=== PATIENT | female | born 1980 | race Caucasian/White ===

== ENCOUNTER 2024-09-09 01:52 | Day surgery (SDC) | payer OTHER, SELFPAY ==
[2024-09-08 11:05] VITALS: BMI 26.6
--- OUTSIDE RECORDS SUMMARY | 2024-09-09 01:56 | XMS_ITS | Clinical Summary ---
Author Organization [facility] Address [facility] [place] [address] Care Team Providers Care Fire Hose Curer Name Role Phone Aleyda Powell DO Primary Care Provider [phone] Allergies No known active allergies Medications clindamycin-benzo yl peroxide (BENZACLIN) gel Active hydrocortisone (ANUSOL-HC) 25 mg suppository as needed Active cyclobenzaprine (FLEXERIL) 10 mg tablet Take by mouth 3 (three) times a day as needed Active pregabalin (LYRICA) 75 mg capsule Take 1 capsule (75 mg total) by mouth nightly as needed Active multivitamin tabletIndications :Vitamin Deficiency Prevention Take 1 tablet by mouth Active omega-3 fatty acids-fish oil 300-1,000 mg capsule Take 2 capsules (2 g total) by mouth daily Active cetirizine (ZyrTEC) 10 mg tablet Take 1 tablet (10 mg total) by mouth daily Active tretinoin (RETIN-A) 0.025 % cream APPLY TO AFFECTED AREA EVERY DAY AT BEDTIME Active apixaban (ELIQUIS) 5 mg tabletIndications :Other (complete free text reason below),atrial flutter Take 1 tablet (5 mg total) by mouth 2 (two) times a day 180 tablet 3 024 2024 Active omeprazole OTC (PriLOSEC OTC) 20 mg EC tablet Take 1 tablet (20 mg total) by mouth daily Active fluticasone propionate (Flonase Allergy Relief) 50 mcg/actuation nasal spray Administer 50 mcg into affected nostril(s) Active olopatadine (PATANOL) 0.1 % ophthalmic solution 1 drop Active dexAMETHasone (DECADRON) 1 mg tabletIndications :Low testosterone level in female Take 1 tablet at 11pm on the night before your 8 am cortisol lab draw 1 tablet 1 Active Additional Information Patient not taking.Reported on 07/16/2024 benzonatate (TESSALON) 100 mg capsule TAKE 1 CAPSULE BY MOUTH THREE TIMES A DAY FOR 10 DAYS Active LORazepam (Ativan) 0.5 mg tablet Take 1 tablet (0.5 mg total) by mouth once for 1 dose Take 30 min prior to MRI 1 tablet Active Additional Information Patient not taking.Reported on 08/11/2024 loperamide (IMODIUM) 2 mg capsuleIndication s:diarrhea Take 1 capsule (2 mg total) by mouth 3 (three) times a day as needed for diarrhea 30 capsule Active ondansetron ODT (ZOFRAN-ODT) 4 mg disintegrating tablet Take 1 tablet (4 mg total) by mouth every 8 (eight) hours as needed for nausea or vomiting 20 tablet Active estradioL (VIVELLE-DOT) 0.025 mg/24 hrIndications:Low testosterone level in female Place 1 patch on the skin 2 (two) times a week 8 patch 11 2025 Active progesterone (PROMETRIUM) 100 mg capsuleIndication s:Low testosterone level in female Take 1 capsule (100 mg total) by mouth daily 30 capsule 11 025 2025 Active dilTIAZem (CARDIZEM) 30 mg tablet TAKE 1 TABLET BY MOUTH TWICE A DAY 180 tablet 3 Active atorvastatin (LIPITOR) 40 mg tablet TAKE 1 TABLET BY MOUTH EVERY DAY 90 tablet 3 Active celecoxib (CeleBREX) 200 mg capsule Take 1 capsule (200 mg total) by mouth 2 (two) times a day 60 capsule 1 025 2024 Active atorvastatin (LIPITOR) 40 mg tablet Take 1 tablet (40 mg total) by mouth daily 90 tablet 3 024 2024 Discontinued dilTIAZem (CARDIZEM) 30 mg tabletIndications :Supraventricular Arrhythmias Take 1 tablet (30 mg total) by mouth 2 (two) times a day 180 tablet 3 024 2024 Discontinued Active Problems Problem Noted Date Diagnosed Date Colitis 06/22/2024 Liver lesion 06/04/2024 Assessment & Plan (06/04/2024 8:28 AM CDT): Patient with liver lesion that has been seen on imaging since 2019. Most recent US showed 2.3 cm hyperechoic lesion within right lobe of liver. 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 I will obtain MRI with eovist to confirm. Patient will need anti-anxiety medications, will ask physician to send. No follow-up visit is needed at this time. If liver lesion is not benign, will arrange follow-up accordingly. Stress 05/27/2024 Melanocytic nevus of trunk 05/19/2024 Melasma 05/19/2024 Other nerve root and plexus disorders 05/19/2024 Seborrheic keratosis 05/19/2024 Solar lentigo 05/19/2024 Atrophy of skin 04/27/2024 Shweta infection 04/08/2024 Low testosterone level in female 02/16/2024 Myopia 11/04/2023 Osteoarthritis of right knee 11/04/2023 Transient ischemic attack 10/29/2023 Vision loss of right eye 10/05/2023 Assessment & Plan (11/11/2023 4:40 PM CDT): Was recently admitted for unstable angina mid September 2023 following catheterization procedure developed transient temporal vision loss OD. Ophthalmology was consulted recommended MRI brain and orbits (normal), carotid imaging (normal), and signed off. -today with no vision changes, temporal vision went back to normal following resolution of atrial flutter -exam today overall reassuring -ancillary testing (mac with GCC and Field visual field 24-2) also reassuring -patient can follow-up annually with local eye doctor Assessment & Plan (10/07/2023 2:32 PM CDT): Transient R-sided vision loss for about 1 hour that spontaneously resolved post- LHC. Etiology still unclear but differential includes procedural/sedation related vs TIA related to ?embolic phenomenon given atrial flutter vs headache/aura. - brain MRI with orbits normal - US carotid dopplers normal - 30 day event monitor on discharge - SMART consult - ophtho consulted, appreciate recs: no acute ophtho intervention, plan for 2 week follow up in ophtho clinic - neurology consulted, appreciate recs: unclear, possibly provoked TIA following LHC vs unprovoked TIA from aflutter vs migraine vs other. Paroxysmal atrial flutter 10/03/2023 Assessment & Plan (10/06/2023 12:07 PM CDT): Pt presented to the ED with intermittent left midsternal chest pain that radiates to her left shoulder and jaw. Stress test 09/26 with c/f ischemia involving inferior, apical, septal, and mid anteroseptal segments. Subsequently developed similar chest pain symptoms and found with atrial flutter intra-procedurally, thought to explain her symptoms. - In the ED, EKG with sinus bradycardia w/o ischemic changes. Negative troponin x2. - s/p ASA load and started on heparin gtt - C 10/04/23 without evidence of coronary artery disease, but developed 4:1 atrial flutter with symptomatic chest pain - start diltiazem 30 mg BID, but pt instructed to monitor for symptoms given baseline sinus bradycardia - empirically anticoagulate with apixaban 5 mg BID in the short term; continue outpatient cardiology follow up to determine need for long-term AC based on 30 day MCT - Cardiology consulted, appreciate recs - telemetry Gastroesophageal reflux disease 09/12/2023 Assessment & Plan (10/03/2023 4:09 PM CDT): - cont home PPI Hepatic cyst 09/12/2023 Chest pressure 09/12/2023 Palpitations 08/23/2023 Bilateral lower extremity edema 08/23/2023 Pleuritic chest pain 08/23/2023 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 No EKG concerns - f/u with outpt cards SOB (shortness of breath) 08/23/2023 Nonrheumatic pulmonary valve insufficiency 08/22 Contusion of ankle 06/19/2023 Right ankle sprain 06/19/2023 Low back pain 05/17/2023 Assessment & Plan (10/03/2023 4:12 PM CDT): On flexeril prn, Lyrica prn, celebrex BID - cont home prn lyrica and flexeril - hold celebrex given black box warning increased risk of CV thrombotic events Right lumbar radiculopathy 05/17/2023 Acute appendicitis 08/06/2018 Overview (08/06/2018): Added automatically from request for surgery [id number] Resolved Problems Problem Noted Date Diagnosed Date Resolved Date Morbid obesity 05/27/2024 06/04/2024 Encounters Date Type Department Care Team Description 09/07/2024 1:45 PM CDT Ancillary Procedure Radiology - [address] [place] [address] [address] [place] [address] Chronic left-sided low back pain, unspecified whether sciatica present 09/07/2024 1:20 PM CDT Office Visit [facility] Orthopaedic Surgery [address] [facility] 2[address] [place] [address] Chrissy Lawson PA Chronic left-sided low back pain, unspecified whether sciatica present (Primary Dx); Gluteal tendonitis of left buttock; Sacroiliac joint pain 08/11/2024 4:00 PM CDT Office Visit [facility] Endocrinology Metabolism and Lipid [address] [facility] 13th [place] [address] [place] [address] Melanie Leach MD PhD Low testosterone level in female 07/30/[address] [facility] Cardiology [address] [place] [address] Maame Hankins NP 07/16/2024 3:00 PM CDT Office Visit [facility] Cardiology [address] [place] [address] Maame Hankins NP Chronic anticoagulation (Primary Dx); History of Sztmp-Mqnscrvzj-Ggwkr (WPW) syndrome 07/10/2024 Documentation [facility] Gastroenterology [address] [facility] [address] [place] [address] [place] [address] Teddy Gunderson, JUAREZ 07/10/2024 Results Follow-Up [facility] Gasteroenterology [address] [facility] 12th [place] [address] [place] [address] Dottie Ashley NP MRI Abdomen Liver W WO Contrast 07/09/2024 5:45 PM CDT - 07/09/2024 11:59 PM CDT Hospital Encounter [facility] ([facility] [address] [place] [address] Liver lesion Discharge Disposition: Discharge to home or self care 07/03/2024 Telephone Internal Medicine Giselle Busby MD 06/24/2024 Results Follow-Up [facility] Emergency Department [address] [place] [id number] Benjy Evans RN Stool culture Stool 06/22/2024 9:03 AM CDT - 06/22/2024 5:04 PM CDT Emergency [facility] Emergency Department [address] [place] [address] Russell Gallagher MD Liu, Sonya Yannie, MD Colitis (Primary Dx) Discharge Disposition: Discharge to home or self care 06/12/2024 8:38 AM CDT - 06/12/2024 11:59 PM CDT Hospital Encounter [id number] [address] [facility] [address] [place] [address] Chris Iyer MD Lumbar radiculopathy Discharge Disposition: Discharge to home or self care 06/09/2024 Telephone Radiology - [address] [facility] [address] [address] Hawa Fox, RT from Last 3 Months Immunizations Immunization Administration Dates Next Due Anthrax 01/26/2021, 0,12/25/2018,12/04,11/15/2016,01/14/2015,11/02/2013 ,09/04/2012,07/18/2011,07/07/2010,03/26,08/26/2008,02/06/2008, 8,07/28/2007,07/11/2007 H1N1 Inj Preservative Free 04/15/2009 HPV, Quadrivalent 11/05/2006,07/05/2006,04/24/19 07 Hep A, Adult 06/11/2005,12/12/2004 Hep B Vaccine 04/21/2008,10/14/2007,09/04/2007 IPV 02/20/2005 Influenza LAIV (Nasal) 04/16/2007,01/11/2006,10/2004 Influenza, Quadrivalent, Spl it, Intramuscular 01/26/2021,01/21/2020 Influenza, Quadrivalent, Spl it, Preservative Free, Intramuscular 01/17/2022,02/25/2019,04/21/2018 Influenza, Split 12/28/2009,01/05/2009, 8 Influenza, Trivalent, Cell Culture-based MDCK, Preservative Free, Antibiotic Free, Intramuscular 03/04/2017 Influenza, Trivalent, Preser vative Free, Intramuscular 04/13/2016,01/14/2015,01/06/2014,03/30,01/09/2012,02/07/2011 Meningococcal MCV4P (Menactra) 11/12/2017,2012,07/07/2007 PPD TEST 01/11/2006 Smallpox 07/28/2007 Td, adsorbed 01/26/2021,12/12/2004 Tdap 05/04/2011 Typhoid Inactivated 01/26/2021, 9,08/13/2011,07/21,07/07/2007 Typhoid Live 11/02/2013 Yellow Fever 07/28/2007 Surgical History Surgery Date Site/Laterality Comments INSERTION / REMOVAL / REPLAC EMENT VENOUS ACCESS CATHETER ABLATION WPW FL FLUORO GUIDED LUMBAR PUNCTURE 05/21/2023 Right FL FLUORO GUIDED LUMBAR PUNCTURE 06/28/2023 Right APPENDECTOMY JOINT REPLACEMENT FL FLUORO GUIDED LUMBAR PUNCTURE 06/12/2024 Right Medical History Medical History Date Comments Anemia Gastric reflux Seasonal allergies Urinary tract infection Arthritis Menstrual problem Family History Medical History Relation Name Comments Prostate cancer Maternal Grandfather Arthritis Mother Bev Cancer Mother Bev adenocarcima of uterus lung problems Mother Bev Hyperthyroidism Other maternal aunt Asthma Sister Sammie Other Sister Sammie Prolactinoma Sister Sammie Seizures Sister Sammie Relation Name Status Comments Maternal Grandfather Mother Bev Other maternal aunt Sister Sammie Social History Tobacco Use Types Packs/Day Years Used Date Smoking Tobacco: Never Smokeless Tobacco: Never Tobacco Cessation:Counseling Given: Not Answered Alcohol Use Standard Drinks/Week Comments Yes 0 (1 standard drink = 0.6 oz pur e alcohol) occasionally AUDIT-C Answer Date Recorded Q1: How often do you have a drink containing alc ohol? 2-4 times a month 10/04/2023 Q2: How many drinks containi ng alcohol do you have on a typical day when you are drinking? 1 or 2 10/04/2023 Q3: How often do you have si x or more drinks on one occasion? Never 10/04/2023 PHQ-2 Answer Date Recorded PHQ-2 Total Score (If total score is 3 or more points, staff should administer the PHQ-9) 0 10/07/2023 Personal Safety Answer Date Recorded Have you ever been in or are you currently in a harmful physical or emotional relationship or is someone making you feel afraid or unsafe? 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 History Last Filed Vital Signs Vital Sign Reading Time Taken Comments Blood Pressure 114/77 08/11/2024 4:02 PM CDT Pulse 50 08/11/2024 4:02 PM CDT Temperature 37.1 C (98.7 F) 08/11/2024 4:02 PM CDT Respiratory Rate 16 06/22/2024 4:47 PM CDT Oxygen Saturation 96% 07/16/2024 2:57 PM CDT Inhaled Oxygen Concentration - - Weight 83.9 kg (185 lb) 08/11/2024 4:02 PM CDT Height 175.3 cm (5' 9) 08/11/2024 4:02 PM CDT Body Mass Index 27.32 08/11/2024 4:02 PM CDT Plan of Treatment Health Maintenance Due Date Last Done Comments Breast Cancer Screening-Mammogram 1982 Cervical Cancer Screening 1982 Hepatitis C Screening 1982 Regular Well Visit/Exam 18-64 2000 Varicella Vaccines (1 of 2 - 13+ 2-dose series) 05/14/2007 Covid-19 Vaccine ( - season) 2023 05/13/2020, 04/13/2020 Depression Screening 10/02/2024 10/03/2023 Influenza Vaccine (Season Ended) 2024 01/17/2022, 01/26/2021, 01/21/2020, Additional history exists DTaP/Tdap/Td Vaccine (3 - Td or Tdap) 01/26/2031 01/26/2021, 05/04/2011, 12/12/2004 HPV Vaccines Completed 11/05/2006, 06/23, 04/24/2006 Hepatitis B Screening Completed 04/21/2008 , 10/14/2007, 09/04/2007 Pneumococcal vaccine <65 Aged Out No longer eligible based on patient's age to complete this topic Procedures Procedure Name Priority Date/Time Associated Diagnosis Comments XR SPINE LUMBAR 2 OR 3 VIEWS Schedule Routine, Read Routine (OP Routine) 09/07/2024 1:46 PM CDT Chronic left-sided low back pain, unspecified whether sciatica present MRI ABDOMEN LIVER W WO CONTRAST Schedule Routine, Read Routine (OP Routine) 07/09/2024 7:21 PM CDT Liver lesion NOROVIRUS PCR Routine 06/22/2024 4:31 PM CDT URINALYSIS AND REFLEX TO MICROSCOPIC STAT 06/22/2024 12:02 PM CDT POCT HCG, URINE Routine 06/22/2024 11:[address] ABDOMEN PELVIS W CONTRAST ED 06/22/2024 11:26 AM CDT NOROVIRUS PCR Routine 06/22/2024 10:33 AM CDT STOOL CULTURE Routine 06/22/2024 10:33 AM CDT C. DIFFICILE TESTING Routine 06/22/2024 10:33 AM CDT EGFR Routine 06/22/2024 9:46 AM CDT DIFFERENTIAL AUTO STAT 06/22/2024 9:4 6 AM CDT COMPREHENSIVE METABOLIC PANEL Routine 06/22/2024 9:46 AM CDT CBC WITH AUTO DIFFERENTIAL STAT 06/22/2024 9:46 AM CDT RESPIRATORY PATHOGEN PANEL STAT 06/22/2024 9:46 AM CDT TRANSFORAMINAL EPIDURAL INJECTION LUMBAR SACRAL 1 LEVEL RIGHT Schedule Routine, Read Routine (OP Routine) 06/12/2024 9:55 AM CDT Lumbar radiculopathy from Last 3 Months Results * X-ray lumbar spine 2 or 3 views (09/07/2024 1:46 PM CDT) Anatomical Region Laterality Modality Spine N/A Computed Radiogr aphy 09/07/2024 2:23 PM CDT Impressions 09/07/2024 2:23 PM CDT 1. Multilevel mild lumbar degenerative disc disease, worst at L5-S1. Electronically signed by: Trisha Lauren 09/07/2024 2:23 PM CDT EXAMINATION: XR SPINE LUMBAR 2 OR 3 VIEWS HISTORY: low back pain COMPARISON: CT abdomen and pelvis dated 06/22/2024 FINDINGS: Mild dextrocurvature and straightening of the lumbar spine. No listhesis. Multilevel mild degenerative disc disease, worst at L5-S1. No acute compression fractures. Intrauterine device is partially visualized. Procedure Note Nhan Greene, DO - 09/07/2024 EXAMINATION: XR SPINE LUMBAR 2 OR 3 VIEWS HISTORY: low back pain COMPARISON: CT abdomen and pelvis dated 06/22/2024 FINDINGS: Mild dextrocurvature and straightening of the lumbar spine. No listhesis. Multilevel mild degenerative disc disease, worst at L5-S1. No acute compression fractures. Intrauterine device is partially visualized. IMPRESSION: 1. Multilevel mild lumbar degenerative disc disease, worst at L5-S1. Electronically signed by: Nhan Greene D.O. us Chrissy KENNEY IMG XR PROCEDURES Final Result * MRI Abdomen Liver W WO Contrast (07/09/2024 7:21 PM CDT) Anatomical Region Laterality Modality Body N/A Magnetic Resonan ce 07/10/2024 8:56 AM CDT Impressions 07/10/2024 10:57 AM CDT Hepatic segment 7 hemangioma, unchanged dating back to 2019. No suspicious hepatic lesion. Dictated by: Francisco Garza MD The radiology attending physician has personally reviewed this study, and had reviewed and/or edited this written report and agrees with it. Electronically signed by: Christian Segura M.D. Narrative 07/10/2024 10:57 AM CDT EXAMINATION: MAGNETIC RESONANCE IMAGING OF THE ABDOMEN WITH AND WITHOUT CONTRAST HISTORY: Liver lesion TECHNIQUE: Magnetic resonance imaging of the abdomen was performed prior to and following the uneventful administration of intravenous Gadolinium contrast. Protocol: Liver Dual Contrast Contrast: Gadoterate 16 mL; Eovist 8 mL COMPARISON: CT 06/22/2024, 08/06/2018 FINDINGS: Liver: No fat or iron deposition. No surface nodularity. - Bile ducts: Normal - Focal liver lesions: A 2 cm T2 hyperintense lesion with peripheral discontinuous nodular enhancement and progressive filling representing a hemangioma is unchanged dating back to 2019 (series 21 image 21). - Vasculature: Portal and splenic veins are patent. Accessory left hepatic artery. Gallbladder: Normal Pancreas: Normal Spleen: Normal Adrenals: Normal Kidneys: Normal Other Findings: No abdominal lymphadenopathy. No suspicious osseous lesions. Procedure Note Christian Segura MD - 07/10/2024 EXAMINATION: MAGNETIC RESONANCE IMAGING OF THE ABDOMEN WITH AND WITHOUT CONTRAST HISTORY: Liver lesion TECHNIQUE: Magnetic resonance imaging of the abdomen was performed prior to and following the uneventful administration of intravenous Gadolinium contrast. Protocol: Liver Dual Contrast Contrast: Gadoterate 16 mL; Eovist 8 mL COMPARISON: CT 06/22/2024, 08/06/2018 FINDINGS: Liver: No fat or iron deposition. No surface nodularity. - Bile ducts: Normal - Focal liver lesions: A 2 cm T2 hyperintense lesion with peripheral discontinuous nodular enhancement and progressive filling representing a hemangioma is unchanged dating back to 2019 (series 21 image 21). - Vasculature: Portal and splenic veins are patent. Accessory left hepatic artery. Gallbladder: Normal Pancreas: Normal Spleen: Normal Adrenals: Normal Kidneys: Normal Other Findings: No abdominal lymphadenopathy. No suspicious osseous lesions. IMPRESSION: Hepatic segment 7 hemangioma, unchanged dating back to 2018. No suspicious hepatic lesion. Dictated by: Francisco Garza MD The radiology attending physician has personally reviewed this study, and had reviewed and/or edited this written report and agrees with it. Electronically signed by: Christian Segura M.D. Dottie Ashley NP IM MRI PROCEDURES Final Result * Norovirus PCR Stool (06/22/2024 4:31 PM CDT) Norovirus GI RNA Not Detected Not Detected [facility] Norovirus GII RNA Not Detected Not Detected [facility] Comment: Interpretive data: Testing performed at the [facility] using the Myer Xpert Norovirus Assay. This assay uses nucleic acid amplification to detect RNA from norovirus. This test is cleared by the [place] Food and Drug Administration for unformed stool specimens. The performance characteristics for unformed stool specimens have been verified by the performing laboratory. The performance characteristics of rectal swab specimens have also been validated and verified by the performing laboratory. Positive Xpert Norovirus results do not rule out other causes of infectious diarrhea. Assay interference may be observed in the presence of Barium sulfate and Benzalkonium chloride. Mutations or polymorphisms in primer or probe binding regions may affect detection of new or unknown norovirus variants resulting in a false negative result. Results from the Xpert Norovirus Assay should be interpreted in conjunction with other laboratory and clinical data available to the clinician. Current interpretive data was last revised on 2023. Stool 06/22/2024 4:31 PM CDT 06/22/2024 8:41 PM CDT us Angeline Billingsley MD LAB MICROBIOLOGY - GENERAL O RDERABLES Final Result [facility] Department [place] [address] [facility] * Urinalysis reflex to microscopic (06/22/2024 12:02 PM CDT) Color, ur Straw Yellow Clarity, ur Clear Clear [facility] Specific gravity, ur 1.006 1.003 - 1.030 [facility] pH, urine 6.5 [facility] Comment: Interpretive Data U rine pH is affected by diet, medications, systemic acid-base disturbances, and renal tubular function. pH may affect urinary stone formation. For example, urine pH below 6.0 may help reduce the tendency for calcium phosphate stones and pH greater than 6.0 may reduce the tendency for uric acid stone formation. Source: [facility] Current Interpretive Data was last revised on 2017 Protein, ur ql Negative Negative [facility] Glucose, ur ql Negative Negative [facility] Ketones, ur Negative Negative [facility] Bilirubin, ur Negative Negative [facility] Blood, ur Negative Negative [facility] Urobilinogen, ur <2.0 <2.0 mg/dL [facility] Nitrite, ur Negative Negative [facility] Leukocyte esterase, ur Negative Negative [facility] UA reflex comment Reflex conditions for microscopic UA not met. [facility] Urine 06/22/2024 12:0 2 PM CDT 06/22/2024 12:09 PM CDT us Russell Gallagher MD LAB URINE ORDERABLES Radha l Result [facility] Department [place] [address] * POCT hCG, urine (06/22/2024 11:58 AM CDT) HCG, ur, POC Negative Negative Lot Number [id number] QC Backgroud Clear Acceptable QC Control Line Acceptable Urine 06/22/2024 11:5 8 AM CDT us Russell Gallagher MD POINT OF CARE TEST ORDERA BLES Final Result * CT Abdomen Pelvis W Contrast (06/22/2024 11:26 AM CDT) Anatomical Region Laterality Modality Body N/A Computed Tomogra phy 06/22/2024 11:3 3 AM CDT Impressions 06/22/2024 11:33 AM CDT 1. Findings compatible with underlying proctitis colitis. 2. Degenerating right adnexal cyst. Electronically signed by: Rodrigue Pearson M.D., MPH Narrative 06/22/2024 11:33 AM CDT EXAMINATION: CT ABDOMEN PELVIS W CONTRAST TECHNIQUE: Computed tomographic examination the abdomen and pelvis was performed with intravenous contrast using a standard protocol. HISTORY: Left lower quadrant pain COMPARISON:08/06/2018 FINDINGS: Visualized lung bases are normal. There is a replaced left hepatic artery. The hemangioma in segment 7 is unchanged. The spleen, pancreas, adrenal glands kidneys are normal. There is hyperemia and thickening of the rectosigmoid colon that may represent a regional proctitis/colitis. There is degenerating right adnexal cyst. The uterus is normal. There is no obstruction pneumoperitoneum free fluid. Osseous windows demonstrate no lytic or blastic lesions. Procedure Note Rodrigue Pearson MD - 06/22/2024 EXAMINATION: CT ABDOMEN PELVIS W CONTRAST TECHNIQUE: Computed tomographic examination the abdomen and pelvis was performed with intravenous contrast using a standard protocol. HISTORY: Left lower quadrant pain COMPARISON:08/06/2018 FINDINGS: Visualized lung bases are normal. There is a replaced left hepatic artery. The hemangioma in segment 7 is unchanged. The spleen, pancreas, adrenal glands kidneys are normal. There is hyperemia and thickening of the rectosigmoid colon that may represent a regional proctitis/colitis. There is degenerating right adnexal cyst. The uterus is normal. There is no obstruction pneumoperitoneum free fluid. Osseous windows demonstrate no lytic or blastic lesions. IMPRESSION: 1. Findings compatible with underlying proctitis colitis. 2. Degenerating right adnexal cyst. Electronically signed by: Rodrigue Pearson M.D., MPH Russell Gallagher MD IMG CT PROCEDURES Final R esult * C. difficile testing Stool (06/22/2024 10:33 AM CDT) Pathologist [facility] Result Negative Negative Toxin Result Negative Negative [facility] C. diff result Negative, free toxin Negative, free toxin [facility] C. diff interp Negative for toxigenic Clostridioides (Clostridium) difficile. Analysis was performed using a glutamate dehydrogenase antigen detection assay combined with a C. difficile toxin detection assay. [facility] Stool 06/22/2024 10:3 3 AM CDT 06/22/2024 11:15 AM CDT Albaro Calderón MD LAB MICROBIOLOGY - GENERA L ORDERABLES Final Result [facility] Department [place] [address] * Norovirus PCR Stool (06/22/2024 10:33 AM CDT) [facility] Norovirus GI RNA Not Detected Not Detected [facility] Norovirus GII RNA Not Detected Not Detected [facility] Comment: Interpretive data: Testing performed at the [facility] using the Myer Xpert Norovirus Assay. This assay uses nucleic acid amplification to detect RNA from norovirus. This test is cleared by the [place] Food and Drug Administration for unformed stool specimens. The performance characteristics for unformed stool specimens have been verified by the performing laboratory. The performance characteristics of rectal swab specimens have also been validated and verified by the performing laboratory. Positive Xpert Norovirus results do not rule out other causes of infectious diarrhea. Assay interference may be observed in the presence of Barium sulfate and Benzalkonium chloride. Mutations or polymorphisms in primer or probe binding regions may affect detection of new or unknown norovirus variants resulting in a false negative result. Results from the Xpert Norovirus Assay should be interpreted in conjunction with other laboratory and clinical data available to the clinician. Current interpretive data was last revised on 2023. Stool 06/22/2024 10:3 3 AM CDT 06/22/2024 7:38 PM CDT us Angeline Billingsley MD LAB MICROBIOLOGY - GENERAL O RDERABLES Final Result [facility] Department [place] [address] [facility] * (ABNORMAL) Stool culture Stool (06/22/2024 10:33 AM CDT) Direct Specimen Exam Shiga Toxin Testing: Antigen detection assay for Shiga-toxin NEGATIVE for Shiga Toxin 1 and Shiga Toxin 2. Report Final Report: Campylobacter jejuni (.) [facility] Organism CAMPYLOBACTER JEJUNI [facility] Stool 06/22/2024 10:3 3 AM CDT 06/22/2024 4:25 PM CDT Narrative [facility] - 06/26/2024 9:40 AM CDT Testing performed by [facility] ([phone]). Routine stool cultures include procedures to detect Salmonella, Shigella, Edwardsiella, Aeromonas, Pleisiomonas, Campylobacter, Yersinia, E. coli O157, and Shiga-like toxins. Vibrio is cultured only upon special request. If Vibrio is suspected, please call the laboratory at [phone]. Interpretive data was last updated July 30, 2016. us Angeline Billingsley MD LAB MICROBIOLOGY - GENERAL O RDERABLES Final Result Performing Organization Address City/[facility]/ZIP Co de Phone Number JYOTHI [facility] Department [place] [address] * eGFR (06/22/2024 9:46 AM CDT) Pathologist [facility] eGFR >90 >=60 mL/min/1. 73 m2 Comment: Interpretive Data Reference Interval Normal >/= 90 mL/min/1.73m2 Mildly decreased* 60 - 89 mL/min/1.73m2 Mildly to moderately decreased 45 - 59 mL/min/1.73m2 Moderately to severely decreased 30 - 44 mL/min/1.73m2 Severely decreased 15 - 29 mL/min/1.73m2 Kidney Failure < 15 mL/min/1.73m2 *Relative to young adult level Estimated glomerular filtration rate is determined by the 2020 CKD-EPI equation recommended by the National Kidney Foundation (A Unifying Approach to GFR Estimation: Recommendations of the NKF-ASK Task Force on Reassessing the Inclusion of Race in Diagnosing Kidney Disease, JASN 2020). The CKD-EPI equation should not be used for patients with unstable renal function and has not been validated in children and those over 70. Current interpretive data was last reviewed 2021. Blood 06/22/2024 9:46 AM CDT 06/22/2024 9:59 AM CDT us Albaro Calderón MD LAB BLOOD ORDERABLES Radha l Result Performing Organization Address City/[facility]/ZIP Co de Phone Number [facility] Department [place] [address] * (ABNORMAL) Differential, auto (06/22/2024 9:46 AM CDT) Pathologist [facility] Neutrophil abs 8.7(H) 1.5 - 6.5 K/cumm Imm gran abs 0.0 0.0 - 0.1 K/cumm [facility] Lymphocyte abs 1.5 0.8 - 3.3 K/cumm [facility] Monocyte abs 1.5(H) 0.2 - 0.8 K/cumm [facility] Eosinophil abs 0.0 0.0 - 0.5 K/cumm [facility] Basophil abs 0.0 0.0 - 0.1 K/cumm [facility] Neutrophil pct 73.9 % [facility] Comment: Interpretive Data Percent cell count reference ranges are not reported, since discordance with absolute values may lead to misinterpretation of CBC data. Current Interpretive Data was last revised on 2017. Imm gran pct 0.3 % [facility] Comment: Interpretive Data Percent cell count reference ranges are not reported, since discordance with absolute values may lead to misinterpretation of CBC data. Current Interpretive Data was last revised on 2017. Lymphocyte pct 12.8 % [facility] Comment: Interpretive Data Percent cell count reference ranges are not reported, since discordance with absolute values may lead to misinterpretation of CBC data. Current Interpretive Data was last revised on 2017. Monocyte pct 12.4 % [facility] Comment: Interpretive Data Percent cell count reference ranges are not reported, since discordance with absolute values may lead to misinterpretation of CBC data. Current Interpretive Data was last revised on 2017. Eosinophil pct 0.3 % [facility] Comment: Interpretive Data Percent cell count reference ranges are not reported, since discordance with absolute values may lead to misinterpretation of CBC data. Current Interpretive Data was last revised on 2017. Basophil pct 0.3 % [facility] Comment: Interpretive Data Percent cell count reference ranges are not reported, since discordance with absolute values may lead to misinterpretation of CBC data. Current Interpretive Data was last revised on 2017. Blood 06/22/2024 9:46 AM CDT 06/22/2024 9:59 AM CDT us Albaro Calderón MD LAB BLOOD ORDERABLES Radha hernandez Result [facility] Department [place] [address] * Respiratory pathogen panel Nasopharyngeal (06/22/2024 9:46 AM CDT) Influenza A RNA Not Detected Not Detected Influenza B RNA Not Detected Not Detected [facility] RSV RNA Not Detected Not Detected [facility] COVID-19 RNA Not Detected Not Detected [facility] Coronavirus 229E RNA Not Detected Not Detected [facility] Coronavirus HKU1 RNA Not Detected Not Detected [facility] Coronavirus NL63 RNA Not Detected Not Detected [facility] Coronavirus OC43 RNA Not Detected Not Detected [facility] Adenovirus DNA Not Detected Not Detected [facility] Metapneumovirus RNA Not Detected Not Detected [facility] Rhinovirus/Enterov irus RNA Not Detected Not Detected [facility] Parainfluenza 1 RNA Not Detected Not Detected [facility] Parainfluenza 2 RNA Not Detected Not Detected [facility] Parainfluenza 3 RNA Not Detected Not Detected [facility] Parainfluenza 4 RNA Not Detected Not Detected [facility] B. pertussis DNA Not Detected Not Detected [facility] B. parapertussis DNA Not Detected Not Detected [facility] C. pneumoniae DNA Not Detected Not Detected [facility] M. pneumoniae DNA Not Detected Not Detected [facility] Nasopharyngeal 06/22/2024 9: 46 AM CDT 06/22/2024 9:53 AM CDT Narrative [facility] - 06/22/2024 10:49 AM CDT Is the Patient experiencing symptoms consistent with COVID?->Yes Surveillance testing for transplant patient?->No Interpretive Data The [employer] FilmArray Respiratory Panel (RP2.1) assay is a multiplexed real-time PCR based nucleic acid test capable of simultaneous qualitative detection and identification of multiple respiratory viral and bacterial nucleic acids, including SARS Coronavirus 2 (the causative agent of COVID-19). The following bacteria, viruses and virus subtypes can be identified using the FilmArray RP2.1 assay: Bordetella pertussis, Bordetella parapertussis, Chlamydia pneumoniae, Mycoplasma pneumoniae, Adenovirus, SARS Coronavirus 2, seasonal coronaviruses (Coronavirus HKU1, Coronavirus NL63, Coronavirus 229E, and Coronavirus OC43), Influenza A, Influenza A subtype H1, Influenza A subtype H3, Influenza A subtype 2009 H1, Influenza B, Metapneumovirus, Parainfluenza 1, Parainfluenza 2, Parainfluenza 3, Parainfluenza 4, RSV, Rhinovirus/Enterovirus. Due to the genetic similarity between human Rhinovirus and Enterovirus, the FilmArray RP2.1 assay cannot reliably differentiate them. Coronavirus OC43 may cross-react with some isolates of Coronavirus HKU1. A dual positive result may be due to cross-reactivity or may indicate a co- infection. The detection and identification of specific viral and bacterial nucleic acids from individuals exhibiting signs and symptoms of a respiratory infection aids in the diagnosis of respiratory infection if used in conjunction with other clinical and epidemiological information. The results of this test should not be used as the sole basis for diagnosis, treatment, or other management decisions. Negative results in the setting of a respiratory illness may be due to infection with pathogens that are not detected by this test. Positive results do not rule out infection/co-infection with other organisms. The agent(s) detected by the FilmArray RP2.1 may not be the definite cause of disease. Additional testing (lab, imaging, etc.) may be necessary when evaluating a patient with possible respiratory tract infection. The FilmArray RP2.1 assay has FDA clearance for testing of RECEIVER swabs. The performance of additional specimen types has been assessed by the performing laboratory. The performance characteristics of this assay have been determined by [facility] Molecular Infectious Disease Laboratory. Current interpretive data was last revised on 22. us Albaro Calderón MD LAB MICROBIOLOGY - [facility] L ORDERABLES Final Result [facility] Department [place] [address] * (ABNORMAL) CBC with auto differential (06/22/2024 9:46 AM CDT) WBC 11.8(H) 3.8 - 9.9 K/cumm Hgb 14.8 11.9 - 15.5 g/dL [facility] Hct 43.3 35.6 - 45.5 % [facility] Plt 197 150 - 400 K/cumm [facility] MPV 10.1 9.1 - 12.3 fL [facility] RBC 4.69 3.90 - 5.20 M/cumm [facility] MCV 92.3 81.3 - 96.4 fL [facility] MCH 31.6 27.1 - 33.3 pg [facility] MCHC 34.2 32.3 - 35.7 g/dL [facility] RDW CV 12.9 11.1 - 14.9 % [facility] RDW SD 43.4 35.7 - 48.1 fL [facility] NRBC abs 0.00 0.00 - 0.01 K/cumm [facility] Blood 06/22/2024 9:46 AM CDT 06/22/2024 9:59 AM CDT us Albaro Calderón MD LAB BLOOD ORDERABLES Radha hernandez Result [facility] Department [place] [address] * Comprehensive metabolic panel (06/22/2024 9:46 AM CDT) Pathologist [facility] Sodium 136 135 - 145 mmol/L Potassium, pl 3.8 3.3 - 4.9 mmol/L [facility] Chloride 103 97 - 110 mmol/L [facility] CO2 22 22 - 32 mmol/L [facility] Anion gap 11 2 - 15 mmol/L [facility] BUN 10 6 - 25 mg/dL [facility] Creatinine 0.82 0.60 - 1.10 mg/dL [facility] Glucose 106 70 - 199 mg/dL [facility] Comment: Interpretive Data Fasting glucose >/= 126 mg/dl is diagnostic for diabetes. Fasting is defined as no caloric intake for at least 8 hours. Fasting glucose between 100 mg/dl to 125 mg/dl is diagnostic of prediabetes. In a patient with classic symptoms of hyperglycemia or hyperglycemic crisis, a random glucose >/= 200 mg/dl is diagnostic for diabetes. In the absence of unequivocal hyperglycemia, results should be confirmed by repeat testing. The classification and Diagnosis of Diabetes Diabetes Care 202; 46: S19-S40. Current interpretive data was last revised 2022. Calcium 9.2 8.5 - 10.3 mg/dL [facility] Bilirubin, total 0.3 0.1 - 1.2 mg/dL [facility] Protein, pl 7.6 6.5 - 8.5 g/dL [facility] Albumin 4.2 3.5 - 5.0 g/dL [facility] Alk phos 62 40 - 130 Units/L [facility] ALT 18 7 - 45 Units/L [facility] AST 30 10 - 45 Units/L [facility] Blood 06/22/2024 9:46 AM CDT 06/22/2024 9:59 AM CDT us Albaro Calderón MD LAB BLOOD ORDERABLES Radha l Result Performing Organization Address City/[facility]/ZIP Co de Phone Number [facility] Department [place] [address] * IR Transforaminal Epidural Injection Lumbar Sacral 1 Level Right (06/12/2024 9:55 AM CDT) Narrative [id number] - 06/12/2024 9:56 AM CDT The images from this study are not interpreted by Radiology. Please refer to the physician's procedure / OR operative note. 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
--- OUTSIDE RECORDS SUMMARY | 2024-09-09 01:56 | XMS_ITS | Encounter Summary ---
Author Organization [facility] Address [address] [place] [address] Phone Care Team Providers Care Heel Caser Name Role Phone Aleyda Powell DO Primary Care Provider [phone] Encounter Details Date Type Department Care Team (Late st Contact Info) Description 07/10/2024 Results Follow-Up 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 No further imaging or visit needed. Sent my chart message. documented in this encounter Plan of Treatment Not on file documented as of this encounter Visit Diagnoses Not on filedocumented in this encounter Care Teams Heel Caser Relationship Specialty Start Date End Date Organ, Aleyda Marlow DO [address] [place] [address] PCP - General Family Medicine 01/13/24 documented as of this encounter
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
[2024-09-09 08:45] VITALS: BP 114/76; PULSE 51; RESP 15; TEMP 36.5; O2SAT 99; BMI 26.8
[2024-09-09 09:14] VITALS: BP 129/80; PULSE 68; RESP 17; O2SAT 100
[2024-09-09 09:19] VITALS: BP 121/79; PULSE 50; RESP 17; O2SAT 100
--- NOTE | 2024-09-09 09:22 | P.PCNCC_ITS ---
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 She apparently had an episode of transient cerebral ischemia and her neurology international travel consultant has requested a loop recorder implant Procedure Procedure performed:: Implantation of Medtronic LINQ 2 loop recorder Access site:: Left anterior chest wall Estimated blood loss:: Minimal Procedure note:: Patient was brought to the cardiac catheterization lab holding area in the postabsorptive state the left anterior chest wall was prepped and draped a lili was made in the 4th intercostal space in the midclavicular line. Patient received 30 cc of lidocaine infiltrated here for local anesthesia. Using the Medtronic insertion tool the puncture wound was made at the lili that was created. The insertion tool was used to create a tract inferior to the in for puncture and then the loop recorder was implanted in this tracked using the insertion tool. The procedure was well tolerated and uncomplicated. The device was activated and good telemetry signal was demonstrated. Manual pressure was held at the puncture wound and then a drop a bio glue and Band-Aid was placed. Findings:: Patient's device is a Medtronic Linq2 loop recorder model LNQ22 serial number [id number] R-waves are sensed at 0.25 mV Conclusion:: Successful uncomplicated implantation of Medtronic LINQ 2 loop recorder Luke Perez MD [facility]
--- NOTE | 2024-10-06 11:22 | PM.IMHP ---
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 She also has a history of paroxysmal atrial flutter and a history of previous TIA. There has been no recent documentation of recurrent AF. Because of this history her neurologist has requested/recommended a loop recorder to be implanted and she is admitted today electively for that procedure. Review of Systems Constitutional: Constitutional: Reports no additional constitutional complaints Eyes: Eyes: Reports no additional eye complaints ENT: Reports system reviewed and no additional complaints, except as documented Cardiovascular: Cardiovascular: Reports no additional cardiovascular complaints Respiratory: Respiratory: Reports no additional respiratory complaints Gastrointestinal: Gastrointestinal: Reports no additional gastrointestinal complaints Musculoskeletal: Musculoskeletal: Reports no additional musculoskeletal complaints Integumentary/Breasts: Skin/Breast: Reports system reviewed and no additional complaints, except as docu Neurologic: Reports as [facility] Social History Social History Smoking status: Never smoker Second hand tobacco smoke exposure: No Alcohol intake: current Drinks per week: 1 Substance use: never Substance use type: does not use Living arrangements: with family Spiritual care concerns: No Meds Home Medications and Allergies Home Medications ?Medication ?Instructions ?Recorded ?Confirmed ?Type apixaban 5 mg tablet (Eliquis) 5 mg PO BID 09/08/24 09/08/24 History atorvastatin 40 mg tablet 40 mg PO DAILY 09/08/24 09/08/24 History cetirizine 10 mg tablet (24Hour 10 mg PO DAILY 09/08/24 09/08/24 History Allergy) cyclobenzaprine 10 mg tablet 10 mg PO TID PRN muscle spasm 09/08/24 09/08/24 History diltiazem HCl 30 mg tablet 30 mg PO BID 09/08/24 09/08/24 History estradiol 0.025 mg/24 hr 1 patch transdermal 09/08/24 History semiweekly transdermal patch fluticasone propionate 50 1 spray intranasal DAILY PRN 09/08/24 09/08/24 History mcg/actuation nasal allergy symptoms spray,suspension (24 Hour Allergy Relief) hydrocortisone acetate 25 mg 25 mg RECTAL DAILY PRN hemorrhoids 09/08/24 09/08/24 History rectal suppository multivitamin (Daily Multi-Vitamin 1 tablet PO DAILY 09/08/24 09/08/24 History tablet) olopatadine 0.1 % eye drops 1 drp EACH EYE DAILY 09/08/24 09/08/24 History omega-3 fatty acids-fish oil 300 2 cap PO DAILY 09/08/24 09/08/24 History mg-1,000 mg capsule,delayed release omeprazole 20 mg capsule,delayed 20 mg PO DAILY 09/08/24 09/08/24 History release ondansetron 4 mg disintegrating 4 mg PO Q8H PRN nausea and vomiting 09/08/24 09/08/24 History tablet progesterone micronized 100 mg 100 mg PO DAILY 09/08/24 09/08/24 History capsule Allergies Allergy/AdvReac Type Severity Reaction Status Date / Time No Known Allergies Allergy Verified 09/09/24 08:43 Exam Const: General: comfortable and no acute distress Other: Healthy-appearing white female no apparent distress HENMT: Mouth: Yes moist mucous membranes Eyes: Sclera: sclerae normal Neck: Neck: supple and no JVD Resp: Effort & Inspection: normal respiratory effort Auscultation: clear to auscultation bilaterally Cardio: Rate: regular rate Rhythm: regular rhythm Other: No murmur no gallop Skin: General skin exam: normal color Neuro: Other: Alert and oriented x3 Extrem: General: normal to inspection Assessment and Plan Assessment and plan (1) TIA (transient ischemic attack): Code(s): G45.9 - Transient cerebral ischemic attack, unspecified Status: Acute Plan Proceed with implantation of [employer] LINQ loop recorder as recommended as an outpatient. Follow-up of loop recorder telemetry will be arranged through the office Luke Perez MD [facility]
== END 2024-09-09 09:55 | disposition home or self-care (01) ==
PROVIDERS: Visit Provider Specialist
PROC: (CPT 33285; principal; 2024-09-09 10:00)
DX: G45.9 Transient cerebral ischemic attack, unspecified (principal); I45.6 Pre-excitation syndrome
CPT/HCPCS: 33285; C1764; J2003